=== PATIENT | female | born 1980 | race Caucasian/White ===

== ENCOUNTER 2017-06-16 13:12 | Emergency (ER) | payer MEDICAID, OTHER ==
[2017-06-16] MEDS ORDERED: Sodium Chloride 0.9% 1,000 ML IV ONE (14:20)
[2017-06-16] MEDS ORDERED: Ondansetron 4 MG/2 ML SDV IVPUSH ONE (14:20)
[2017-06-16] MEDS ORDERED: diphenhydrAMINE 50 MG/ML SDV IVPUSH ONE (14:20)
[2017-06-16] MEDS ORDERED: Ketorolac 30 MG/ML SDV IVPUSH ONE (14:20)
[2017-06-16] MEDS ORDERED: methylPREDNISolone Sodium Succinate 125 MG/2 ML SDV IVPUSH ONE (14:21)
--- NOTE | 2017-06-16 15:00 | EDM.PDOC ---
ED HPI GENERAL MEDICAL PROBLEM - General Chief Complaint: General Stated Complaint: PT WOULD LIKE TO BE SEEN Time Seen by Provider: 06/16/17 14:00 Source of Information: Reports: Patient History Limitations: Reports: No Limitations - History of Present Illness INITIAL COMMENTS - FREE TEXT/NARRATIVE: HISTORY AND PHYSICAL: History of present illness: Patient is a 36 rolled female that presents to the emergency room today with complaints of headache, dizziness, chills and "lung pain". Patient reports she recently moved up here from [place] and was given a Z-Amari and cough medicine for a bronchitis which she was treated for and finished those medications approximately 3 days ago. Reports last night she started to have the symptoms of headache, dizziness and chills. Reports she feels that her bronchitis has returned. States she ran out of her lisinopril and amlodipine did not take her morning doses but has her prescriptions being mailed to her and should arrive tomorrow. Patient is a daily smoker, 15 year history. Review of systems: As per history of present illness and below otherwise all systems reviewed and negative. Past medical history: As per history of present illness and as reviewed below otherwise noncontributory. Surgical history: As per history of present illness and as reviewed below otherwise noncontributory. Social history: No reported history of drug or alcohol abuse. Family history: As per history of present illness and as reviewed below otherwise noncontributory. Physical exam: Gen.: Nontoxic appearing 36 year old female. Able to speak in full sentences without shortness of breath HEENT: Atraumatic, normocephalic, pupils reactive, negative for conjunctival pallor or scleral icterus, mucous membranes moist, throat clear, neck supple, nontender, trachea midline. Lungs: Posterior Expiratory wheezing throughout bilaterally, chest nontender. Dry nonproductive cough noted Heart: S1S2, regular rate and rhythm Abdomen: Soft, nondistended, nontender. Negative for masses or hepatosplenomegaly. Negative for costovertebral tenderness. Pelvis: Stable nontender. Genitourinary: Deferred. Rectal: Deferred. Extremities: Atraumatic, negative for cords or calf pain. Neurovascular unremarkable. Neuro: Awake, alert, oriented. Cranial nerves II through XII unremarkable. Cerebellum unremarkable. Motor and sensory unremarkable throughout. Exam nonfocal. After patient received IV fluids and medications continues to have headache pain. Reviewed diagnostics with patient. Will give patient 1 tablet of tramadol here and prepare patient for discharge. Instructed patient to go home and rest and get plenty of fluids. Voices understanding and is agreeable to plan of care. Diagnostics: CBC, CMP, two-view chest x-ray Therapeutics: IV fluid, Zofran, Toradol, Benadryl, Solu-Medrol Tramadol PO Impression: Headache Definitive disposition and diagnosis as appropriate pending reevaluation and review of above. Neck Pain Score (Numeric/FACES): 8 Chest Pain Score (Numeric/FACES): 8 - Related Data Allergies Allergy/AdvReac Type Severity Reaction Status Date / Time No Known Allergies Allergy Verified 06/16/17 13:45 Home Meds: Home Meds Citalopram [Celexa] 20 mg PO DAILY 06/16/17 [History] Gabapentin [Neurontin] 100 mg PO BID 06/16/17 [History] Levothyroxine 75 mcg PO ACBREAKFAST 06/16/17 [History] Lisinopril 20 mg PO DAILY 06/16/17 [History] Mirtazapine 15 mg PO DAILYBH 06/16/17 [History] amLODIPine [Norvasc] 10 mg PO DAILY 06/16/17 [History] Past Medical History Cardiovascular History: Reports: Hypertension Respiratory History: Reports: Bronchitis, Recurrent, Pneumonia, Recurrent, 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: Neurological History: Reports: Migraines Psychiatric History: Reports: Anxiety, Depression Endocrine/Metabolic History: Reports: Hypothyroidism - Infectious Disease History Infectious Disease History: Reports: Measles, Mumps Social & Family History - Family History Family Medical History: Noncontributory - Tobacco Use Smoking Status *Q: Current Every Day Smoker Years of Tobacco use: 20 Packs/Tins Daily: 1 - Caffeine Use Caffeine Use: Reports: Coffee - Recreational Drug Use Recreational Drug Use: Yes Recreational Drug Type: Reports: Marijuana/Hashish ED ROS GENERAL - Review of Systems Review Of Systems: ROS reveals no pertinent complaints other than HPI. ED EXAM, GENERAL - Physical Exam Exam: See Below (See dictation) EKG INTERPRETATION Rhythm: NSR Course - Vital Signs Last Recorded V/S: Last Vital Signs Temp Pulse 78 06/16/17 15:56 Resp 13 06/16/17 15:56 BP 136/82 06/16/17 15:56 Pulse Ox 99 06/16/17 15:56 - Orders/Labs/Meds Labs: Laboratory Tests 06/16/17 06/16/17 06/16/17 Range/Units 14:55 14:55 14:55 WBC 10.20 (4.0-11.0) K/uL RBC 3.90 L (4.30-5.90) M/uL Hgb 12.4 (12.0-16.0) g/dL Hct 35.9 L (36.0-46.0) % MCV 92.1 (80.0-98.0) fL MCH 31.8 (27.0-32.0) pg MCHC 34.5 (31.0-37.0) g/dL RDW Std Deviation 48.2 (28.0-62.0) fl RDW Coeff of Justice 14 (11.0-15.0) % Plt Count 293 (150-400) K/uL MPV 8.60 (7.40-12.00) fL Neut % (Auto) 55.0 (48.0-80.0) % Lymph % (Auto) 33.3 (16.0-40.0) % Winn % (Auto) 9.5 (0.0-15.0) % Eos % (Auto) 1.7 (0.0-7.0) % Baso % (Auto) 0.5 (0.0-1.5) % Neut # (Auto) 5.6 (1.4-5.7) K/uL Lymph # (Auto) 3.4 H (0.6-2.4) K/uL Winn # (Auto) 1.0 H (0.0-0.8) K/uL Eos # (Auto) 0.2 (0.0-0.7) K/uL Baso # (Auto) 0.1 (0.0-0.1) K/uL Nucleated RBC % 0.0 /100WBC Nucleated RBCs # 0 K/uL Sodium 142 (136-146) mmol/L Potassium 3.6 (3.5-5.1) mmol/L Chloride 111 H (98-110) mmol/L Carbon Dioxide 22 (21-31) mmol/L BUN 11 (6.0-23.0) mg/dL Creatinine 0.7 (0.6-1.5) mg/dL Est Cr Clr Drug Dosing 79.80 mL/min Estimated GFR (MDRD) > 60.0 ml/min Glucose 82 (60-110) mg/dL Calcium 9.2 (8.8-10.8) mg/dL Total Bilirubin 0.4 (0.1-1.5) mg/dL AST 18 (5-40) IU/L ALT 16 (8-54) IU/L Alkaline Phosphatase 69 (40-150) Total Protein 7.6 (6.0-8.0) g/dL Albumin 4.5 (3.5-5.0) g/dL Globulin 3.1 (2.0-3.5) g/dL Albumin/Globulin Ratio 1.5 (1.3-2.8) Urine HCG, Qual NEGATIVE (NEGATIVE) Meds: Medications Discontinued Medications Generic Name Dose Route Start Last Admin Trade Name Freq PRN Reason Stop Dose Admin Diphenhydramine HCl 25 mg 06/16/17 14:20 06/16/17 14:43 Benadryl IVPUSH 06/16/17 14:21 25 mg ONETIME ONE Administration Sodium Chloride 1,000 mls @ 999 mls/hr 06/16/17 14:20 06/16/17 14:42 Normal Saline IV 06/16/17 15:20 999 mls/hr STAT ONE Administration Ketorolac Tromethamine 30 mg 06/16/17 14:20 06/16/17 14:43 Toradol IVPUSH 06/16/17 14:21 30 mg ONETIME ONE Administration Methylprednisolone Sodium Succinate 125 mg 06/16/17 14:21 06/16/17 14:44 Solu-Medrol IVPUSH 06/16/17 14:22 125 mg ONETIME ONE Administration Ondansetron HCl 4 mg 06/16/17 14:20 06/16/17 14:43 Zofran IVPUSH 06/16/17 14:21 4 mg ONETIME ONE Administration Tramadol HCl 50 mg 06/16/17 15:51 Ultram PO 06/16/17 15:52 ONETIME ONE Departure - Departure Time of Disposition: 16:00 Disposition: Home, Self-Care 01 Condition: Good Clinical Impression: Headache Qualifiers: Headache type: unspecified - Discharge Information Referrals: PCP,None [Primary Care Provider] - Forms: ED Department Discharge Additional Instructions: The following information is given to patients seen in the emergency department who are being discharged to home. This information is to outline your options for follow-up care. We provide all patients seen in our emergency department with a follow-up referral. The need for follow-up, as well as the timing and circumstances, are variable depending upon the specifics of your emergency department visit. If you don't have a primary care physician on staff, we will provide you with a referral. We always advise you to contact your personal physician following an emergency department visit to inform them of the circumstance of the visit and for follow-up with them and/or the need for any referrals to a consulting specialist. The emergency department will also refer you to a specialist when appropriate. This referral assures that you have the opportunity for followup care with a specialist. All of these measure are taken in an effort to provide you with optimal care, which includes your followup. Under all circumstances we always encourage you to contact your private physician who remains a resource for coordinating your care. When calling for followup care, please make the office aware that this follow-up is from your recent emergency room visit. If for any reason you are refused follow-up, please contact the [facility] emergency department at and ask to speak to the emergency department charge nurse. [facility] Primary care- Internal Medicine and Family [address] [id number] 1. Please establish care with a primary healthcare provider in [place]. They will be able to refill your blood pressure medications. 2. He had been prescribed tramadol (#10) and Zofran (#4) please take as directed. Do not drive taking tramadol. 3. Follow-up with your primary care provider in the next 1-2 days. Turned to the ED as needed as discussed
[2017-06-16 15:30] LABS: CHLORIDE,CL 111 mmol/L (98-110); SODIUM,NA 142 mmol/L (136-146)
--- NOTE | 2017-06-16 15:42 | CR ---
EXAMINATION: Two-view chest (PA and Lateral views). HISTORY: Coarse lung sounds. FINDINGS: The trachea is midline. The cardiomediastinal silhouette is within normal limits. No pulmonary infilt rates, effusions or pneumothorax. 7 mm right upper lobe calcified granuloma. Osseous structures appear unremarkable. IMPRESSION: No acute cardiopulmonary process.
[2017-06-16] MEDS ORDERED: traMADol 50 MG Tab PO ONE (15:51)
[2017-06-16 15:57] VITALS: BP 136/82
== END 2017-06-16 16:13 | disposition home or self-care (01) ==
LOC: MW.ED 13:12
DX: R51 Headache (principal); F17.210 Nicotine dependence, cigarettes, uncomplicated; I10 Essential (primary) hypertension; Z87.01 Personal history of pneumonia (recurrent); Z79.899 Other long term (current) drug therapy
CPT/HCPCS: 36415; 71020; 80053; 81025; 85025; 96361; 96374; 96375; 99284; A9270; J1200; J1885; J2405; J2930; J7040; 99283